=== PATIENT | female | born 1945 | race Caucasian/White ===

== ENCOUNTER 2018-08-18 12:32 | Inpatient (IN) | payer MEDICARE ==
[~2018-08-18] VITALS: Ht 157.5 cm; Wt 53.1 kg
[2018-08-18 13:00] VITALS: BP 133/69
--- NOTE | 2018-08-18 13:11 | NUR ---
PT LIVES AT HOME ALONE AND WHEN SON CHECKED ON HER SHE WAS VERY CONFUSED AND HAD NOT EATEN. HE ALSO STATED THAT SHE HAS NOT BEEN TAKING HER MEDICATIONS CORRECTLY. SON TOOK THE PT TO [facility] WHO THEN CONTACTED US DUE TO THE PT'S INCREASED CONFUSION, ANXIETY AND HER TEARFUL BEHAVIOR. PT IS ANXIOUS UPON ADMIT. PT AND SON BOTH GAVE CONSENT FOR TREATMENT AND PT SIGNED HER CONSENTS. PT HAS HER TOP DENTURES BUT HER BOTTOM ONES ARE NOT WITH HER AT THIS TIME. PT DOES HAVE HER GLASSES. PT IS A FULL CODE AND HER CODE WORD IS "NITRO 7".
[2018-08-18 14:24] LABS: BASOPHILS 0.4 % (0-2); EOSINOPHILS 0.7 % (0-7); HEMATOCRIT 41.3 % (36.0-48.0); HEMOGLOBIN 13.7 g/dL (12-16); IMMATURE GRANULOCYTES 0.2 % (0-5); LYMPHOCYTES 19.3 % (15-50); MCH 32.8 pg (26.0-34.0); MCHC 33.2 g/dL (31.0-37.0); MCV 98.8 fL (80.0-100.0); MEAN PLATELET VOLUME 10.2 fL (7.4-10.4); MONOCYTES 5.7 % (2-11); NEUTROPHILS 73.7 % (40-80); PLATELET COUNT 247 10x3/uL (130-400); RBC 4.18 10x6/uL (4.00-5.40); RDW 15.6 % (11.5-14.5); WBC 9.4 10x3/uL (4.8-10.8)
[2018-08-18 14:52] LABS: ALBUMIN 3.6 g/dL (3.4-5.0); ALKALINE PHOSPHATASE 104 U/L (46-116); ALT (SGPT) 22 U/L (10-68); BILIRUBIN - TOTAL 0.26 mg/dL (0.2-1.3); CALC OSMOLALITY 273 mosm/kg (275-300); CALCIUM 8.7 mg/dL (8.5-10.1); CARBON DIOXIDE 27.9 mmol/L (21.0-32.0); CHLORIDE - SERUM 100 mmol/L (98-107); CHOL - HDL RATIO 3.6 ratio (2.3-4.1); CHOLESTEROL, TOTAL 175 mg/dL (0-200); CREATININE - SERUM 0.7 mg/dL (0.6-1.3); GLUCOSE 115 mg/dL (74-106); HDL CHOLESTEROL 49 mg/dL (32-96); LDL CHOLESTEROL 65 mg/dL (0-100); LDL-HDL RATIO 1.3 ratio (1.5-3.5); POTASSIUM - SERUM 3.9 mmol/L (3.5-5.1); PROTEIN - SERUM 6.8 g/dL (6.4-8.2); SODIUM 137 mmol/L (136-145); TRIGLYCERIDE 309 mg/dL (30-200); UREA NITROGEN 9 mg/dL (7-18); eGFR NON AFRICAN AMERICAN 87 mL/min (90-120)
[2018-08-18 15:19] LABS: APPEARANCE CLEAR (CLEAR); BILIRUBIN NEGATIVE (NEGATIVE); COLOR YELLOW (YELLOW); EPITHELIAL CELLS 0-5 /hpf (0-5); GLUCOSE NEGATIVE (NEGATIVE); KETONE NEGATIVE (NEGATIVE); NITRITE NEGATIVE (NEGATIVE); PROTEIN NEGATIVE (NEGATIVE); RED CELLS - URINE 0-5 /hpf (0-5); SPECIFIC GRAVITY 1.015 (1.005-1.020); UROBILINOGEN NORMAL (NORMAL); WHITE CELLS - URINE 0-5 /hpf (0-5)
[2018-08-18] MEDS ORDERED: PROVENTIL/2.5 MG/3 M INH (15:33)
[2018-08-18] MEDS ORDERED: ASPIRIN81 MG PO (15:34)
[2018-08-18] MEDS ORDERED: ELAVIL25 MG PO (15:34)
[2018-08-18] MEDS ORDERED: ZITHROMAX500 MG PO (15:35)
[2018-08-18] MEDS ORDERED: LIPITOR20 MG PO (15:35)
[2018-08-18] MEDS ORDERED: BACLOFEN10 MG PO (15:36)
[2018-08-18] MEDS ORDERED: DIPROLENE 0.05%50 GM TOPICAL (15:37)
[2018-08-18] MEDS ORDERED: CEFUROXIME250 MG PO (15:40)
[2018-08-18] MEDS ORDERED: OMNICEF300 MG (15:40)
[2018-08-18] MEDS ORDERED: KLONOPIN1 MG PO (15:43)
[2018-08-18] MEDS ORDERED: BENTYL10 MG PO (15:44)
[2018-08-18] MEDS ORDERED: ARICEPT23 MG PO (15:45)
[2018-08-18] MEDS ORDERED: PROZAC20 MG PO (15:46)
[2018-08-18] MEDS ORDERED: FERROUS SULFAT325 MG PO (15:46)
[2018-08-18] MEDS ORDERED: LASIX40 MG PO (15:47)
[2018-08-18] MEDS ORDERED: FLUTICASONE PRO16 GM NASAL (15:47)
[2018-08-18] MEDS ORDERED: GABAPENTIN100 MG PO (15:48)
[2018-08-18] MEDS ORDERED: SYNTHROID100 MCG PO (15:50)
[2018-08-18] MEDS ORDERED: HYDROXYZINE HCL10 MG PO (15:50)
[2018-08-18] MEDS ORDERED: LIDOCAINE50 GM TOPICAL (15:51)
[2018-08-18] MEDS ORDERED: LYRICA50 MG PO (15:51)
[2018-08-18] MEDS ORDERED: MOBIC7.5 MG PO (15:52)
[2018-08-18] MEDS ORDERED: NAMENDA5 MG PO (15:52)
[2018-08-18] MEDS ORDERED: MELATONIN5 MG PO (15:52)
[2018-08-18] MEDS ORDERED: PROTONIX40 MG PO (15:53)
[2018-08-18] MEDS ORDERED: ZOFRAN4 MG PO (15:53)
[2018-08-18] MEDS ORDERED: K-DUR20 MEQ PO (15:54)
[2018-08-18] MEDS ORDERED: MIRALAX17 GM PO (15:54)
[2018-08-18] MEDS ORDERED: SEROQUEL50 MG PO (15:55)
[2018-08-18] MEDS ORDERED: PREDNISONE20 MG (15:55)
[2018-08-18] MEDS ORDERED: PRAVACHOL20 MG PO (15:55)
[2018-08-18] MEDS ORDERED: REQUIP1 MG PO (15:56)
[2018-08-18] MEDS ORDERED: TRAZODONE HCL150 MG (15:57)
[2018-08-18] MEDS ORDERED: KENALOG 0.1% OI80 GM TOPICAL (15:58)
--- NOTE | 2018-08-19 04:20 | NUR ---
B) Patient is alert and oriented to person and place and time, restless and attention seeking at times, wanders the hallways and frequent visits to nurses station I) Administered scheduled medications as ordered, PRN Lanicaine cream for arm pain 8 of 10 at 21:00, R) Mediation compliant, resting in bed asleep P) Continue plan of care.
[2018-08-19 07:31] LABS: RAPID PLASMA REAGIN Non Reactive (Non Reactive); VITAMIN D 25 HYDROXY 32.9 ng/mL (30.0-100.0)
[2018-08-19 09:17] LABS: FOLATE (FOLIC ACID) - SERUM 9.6 ng/mL (>3.0)
[2018-08-19 13:38] VITALS: Ht 157.5 cm; Wt 53.1 kg
--- NOTE | 2018-08-19 15:14 | NUR ---
ORIENTED X 3. COMPLIANT WITH STAFF AND MEDS.INTRUSIVE AT TIMES.CAN BE QUITE NEEDY AT TIMES.GAIT UNSTEADY,AMBULATES WITH A WALKER.WILL CONTINUE WITH PLAN OF CARE,MONITOR FOR CHANGES AND SAFETY.
[2018-08-19 15:43] VITALS: BP 116/71
[2018-08-19 19:58] VITALS: BP 131/62
--- NOTE | 2018-08-20 03:57 | NUR ---
B) Patient is alert and oriented to person and place, calm and cooperative, needy at times, I) Administered scheduled medications as ordered, redirected as needed, R) Mediation compliant, resting quietly in her room, wanders at times P) Continue plan of care.
[2018-08-20 07:04] VITALS: BP 118/80
--- NOTE | 2018-08-20 10:17 | NUR ---
PT IS CALM, COOPERATIVE TODAY. UPDATED SON ON PT'S BEHAVIOR AND [place] PLAN. VERBALIZED UNDERSTANDING. PT USES WALKER TO AMBULATE. FALL PRECAUTIONS MAINTAINED. MEDICATIONS GIVEN ORDERED. WILL CONTINUE TO MONITOR AND CONTINUE WITH PLAN OF CARE.
--- NOTE | 2018-08-20 12:41 | PN ---
PATIENT:JOSIAH HESS MEDICAL RECORD: [id number] LOCATION:[facility] ADMISSION DATE: 08/18/18 PROGRESS NOTE DATE OF SERVICE: 08/19/2018 SUBJECTIVE: The patient's case was discussed with staff. She has no new complaint. The patient looks significantly less agitated today than she did yesterday. I am not entirely convinced that she takes her medications correctly; or more accurately, I should say I doubt that she has taken any of her medicines correctly for a long time. She is clearly in an environment now where that can happen. I know that she is demented. I am sure that underlying this, she is demented, but I cannot help but believe that the current situation that we are observing is largely related to polypharmacy that is only inconsistently and sporadically followed. One example was she had a prescription for an antibiotic that, if taken as directed, should have been finished weeks ago. Obviously, the antibiotic is not causing any of these cognitive changes, but she had literally 50 different pill bottles, some overlapping, none of them had the correct number of pills missing from the date or, I should say, at least the ones that were checked did not and several of them were checked. Some of the medicines were also duplicates. Given her cognitive state, I do not see how she could begin to sort out what to take and when to take. I think that she may have little bit of delirium that is associated with polypharmacy. Again, she may clear some, but I feel almost certain that she is going to require 45-zwcd-d-day supervision. Given what we know now, it is looking as though the least restrictive environment is going to be a detention, but I am getting ahead of myself and will just wait and see how things unfold over the next week. TRANSINT:[id number] Voice Confirmation ID: [id number] DOCUMENT ID: [id number] CROW HUYNH MD at 1241 CC: [id number] DICTATION DATE: 08/19/18 1619 COMPUTER VIDEO GAME DESIGNER: 08/19/18 1903 ADM IN [facility] [address] [place] [address]
--- NOTE | 2018-08-20 12:41 | PSY ---
PATIENT NAME:JOSIAH HESS MEDICAL RECORD: [id number] : 45 LOCATION:[facility] ADMISSION DATE: 08/18/18 ACCOUNT: [id number] PSYCHIATRIC EVALUATION DATE OF EVALUATION: 08/18/18 IDENTIFYING DATA: The patient is 73 years old and she is admitted to the hospital on a voluntary basis. CHIEF COMPLAINT: Agitation. HISTORY OF PRESENT ILLNESS: The patient is a very nice, but confused woman who apparently is living alone here in [place]. She is a very poor historian everything that is going to be contained within this history unless otherwise noted needs to be substantiated through collateral sources. The patient apparently is living alone. Her son came to check on her. He apparently does not check on her every day and she has a known history of dementia as well as bipolar disorder and apparently she was agitated, not doing well, and he called and asked us to evaluate her. The patient thinks she is in [place], [place] and living with her . She is quite confused, emotionally distraught and agitated and unable to provide much in the way of useful history or information. She has been quite anxious and has a number of depressive symptoms that she endorses. She has apparently not been eating properly or taking care of herself. She has numerous medication bottles from various physicians and it is pretty clear she has not been taking her medicines correctly. PAST MEDICAL HISTORY: Significant for hypothyroidism, COPD, chronic back, and neck pain. PAST PSYCHIATRIC HISTORY: Significant for dementia, depression, anxiety and bipolar disorder. I doubt she has all of those symptoms, some of them are diagnoses and others can be just symptoms associated with the same disorder, but it is clear she has had a psychiatric history in addition to the dementia, although I do not have details on this. I asked her if she has ever seen a psychiatrist. She answers affirmatively but then when asked who, when, or where she is completely lost and disorganized. ALLERGIES: REGLAN. CURRENT MEDICATIONS: Include Proventil, Elavil, aspirin, Lipitor, Augmentin, Klonopin, Aricept, Prozac, Neurontin, Synthroid, melatonin, Mobic, Pravachol, Seroquel, Desyrel, and Kenalog ointment. She apparently is also either recently been taking or recently discontinued Requip, potassium, Protonix, Zofran, Lyrica, Atarax, Lasix, Feosol, Bentyl, Omnicef, Zithromax, and baclofen. FAMILY HISTORY: Significant for cardiovascular disease and cancer. She says there is no family history of psychiatric illness. SOCIAL HISTORY: The patient says she is and has adult children, 3 of them. 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 She denies a history of drug or alcohol abuse. MENTAL STATUS EXAMINATION: The patient is awake, alert and oriented to person only. Her mood is anxious. Her affect is constricted. Thought processes are disorganized. Memory, concentration, and abstraction abilities are moderately impaired and she denies any active intent to harm herself or others as well as any overt psychotic symptoms. ASSETS: Supportive family members. LIABILITIES: Limited insight. DIAGNOSTIC IMPRESSION: AXIS I: Senile dementia of the Alzheimer's type with behavioral disturbances. Bipolar disorder by history. AXIS II: None. 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 AXIS IV: Moderate. AXIS V: Global assessment of functioning is 30. PLAN: At this time, the patient is admitted to the hospital for a comprehensive medical, psychological, and social evaluation. She will be treated with both mood stabilizing and memory enhancing medications. Her long-term prognosis is guarded. TRANSINT:[id number] Voice Confirmation ID: [id number] DOCUMENT ID: [id number] CROW HUYNH MD at 1241 CC: [id number] DICTATION DATE: 08/18/18 184 DOUBLE NEEDLE OPERATOR: 08/18/182020 ADM IN [facility] [address] [place] [address]
[2018-08-20 20:00] VITALS: BP 102/53
--- NOTE | 2018-08-20 21:40 | NUR ---
PATIENT IS CONFUSED BUT COOPERATIVE, COMPLIANT WITH MEDS, NO ADVERSE REACTION NOTED. WILL FOLLOW POC
--- NOTE | 2018-08-21 07:30 | NUR ---
REC'D PT IN HALLWAY WITH PEERS SOCIALIZING. AWAKE AND ALERT TO SELF. PT IS VERY NEEDY AND ATTENTION SEEKING AT TIMES. CALM AND COOPERATIVE WITH ASSESSMENT. REDIRECT AND REORIENT NEEDED. PRESCRIBED MEDS PROVIDED. MED COMPLIANT. FALL PRECAUTIONS IN PLACE. WILL CONTINUE TO MONITOR Q 15 MINUTES FOR SAFETY. WILL CPOC.
[2018-08-21 08:26] VITALS: BP 135/67
--- NOTE | 2018-08-21 12:51 | PN ---
PATIENT:JOSIAH HESS MEDICAL RECORD: [id number] LOCATION:[facility] ADMISSION DATE: 08/18/18 PROGRESS NOTE DATE OF SERVICE: 08/20/2018 SUBJECTIVE: The patient's case was discussed with staff. She has no new complaint. OBJECTIVE: The patient denies intent to harm herself or others. She is significantly and seriously impaired cognitively, but is much calmer than she had previously been. ASSESSMENT: No change in diagnoses. PLAN: Current medicines have been reviewed. I am going to maintain them. She will be monitored for clinical changes. TRANSINT:[id number] Voice Confirmation ID: [id number] DOCUMENT ID: [id number] CROW HUYNH MD at 1251 CC: [id number] DICTATION DATE: 08/20/18 1251 DRIER AND EVAPORATOR OPERATOR: 08/20/18 1451 ADM IN [place] [facility] [id number] [place] [address]
[2018-08-21 20:00] VITALS: BP 161/68
--- NOTE | 2018-08-21 21:45 | NUR ---
PATIENT IS QUIET, COOPERATIVE, CONFUSED, COMPLIANT WITH MEDS, NO ADVERSE REACTION NOTED. WILL FOLLOW POC
--- NOTE | 2018-08-22 07:30 | NUR ---
REC'D PT IN HALLWAY WITH PEERS. ALERT TO SELF. CALM AND COOPERATIVE WITH ASSESSMENT. NO BEHAVIORS NOTED. PRESCRIBED MEDS PROVIDED. MED COMPLIANT. REDIRECT AND REORIENT NEEDED. FALL PRECAUTIONS IN PLACE. WILL CONTINUE TO MONITOR Q 15 MINUTES FOR SAFETY. WILL CONTINUE PLAN OF CARE.
--- NOTE | 2018-08-22 15:53 | PN ---
PATIENT:JOSIAH HESS MEDICAL RECORD: [id number] LOCATION:[facility] ADMISSION DATE: 08/18/18 PROGRESS NOTE DATE OF SERVICE: 08/21/2018 SUBJECTIVE: The patient's case was discussed with staff. She has no new complaint. OBJECTIVE: The patient is in good behavioral control with limited insight about her condition. She has not been significantly agitated today. ASSESSMENT: No change in diagnoses. PLAN: Brief supportive and educational interventions were made. Long-term prognosis is guarded. TRANSINT:[id number] Voice Confirmation ID: [id number] DOCUMENT ID: [id number] CROW HUYNH MD at 1553 CC: [id number] DICTATION DATE: 08/21/18 1300 CAMP PROGRAM DIRECTOR: 08/21/18 1802 ADM IN [place] [address] [place] [address]
[2018-08-22 20:27] VITALS: BP 109/57
--- NOTE | 2018-08-23 02:51 | NUR ---
B) Patient is alert and oriented to person and being in a hospital, calm and cooperative this shift, I) Administered scheduled mediccations as ordered, monitored for safety R) Mediation compliant, sleeping quiety now, P) [place] plan of care.
--- NOTE | 2018-08-23 07:30 | NUR ---
REC'D PT IN HALLWAY SOCIALIZING WITH PEERS. PT CALM AND COOPERATIVE WITH ASSESSMENT. PRESCRIBED MEDS PROVIDED.MED COMPLIANT. REDIRECT AND REORIENT NEEDED. FALL PRECAUTIONS IN PLACE. WILL CONTINUE TO MONITOR Q 15 MINUTES FOR SAFETY. WILL CPOC.
[2018-08-23 08:30] VITALS: BP 123/69
--- NOTE | 2018-08-23 12:58 | NUR ---
Nutrition Follow Up: Chart reviewed Diet: Regular PO Intake: 51% meal avg BM: 08/22/18 Labs and meds reviewed Rec continue current diet. Will honor food preferences and provide supplements prn. RD following.
--- NOTE | 2018-08-23 15:32 | PN ---
PATIENT:JOSIAH HESS MEDICAL RECORD: [id number] LOCATION:[facility] ADMISSION DATE: 08/18/18 PROGRESS NOTE DATE OF SERVICE: 08/22/2018 SUBJECTIVE: The patient's case was discussed with staff. She has no new complaint. She did not eat very well yesterday, but she slept reasonably well. She is still significantly and seriously confused. It does appear that she is going to require some level of ongoing supervision. She has almost no insight about her situation. ASSESSMENT: No change in diagnoses. PLAN: Going to increase the patient's Namenda to 5 mg twice daily. I am also going to reduce the patient's Klonopin and would like to taper that off before she is discharged. TRANSINT:[id number] Voice Confirmation ID: [id number] DOCUMENT ID: [id number] CROW HUYNH MD at 1532 CC: [id number] DICTATION DATE: 08/22/18 171 MACHINE OPERATOR HELPER: 08/22/18 1836 ADM IN [place] [id number] [place] [address]
[2018-08-23 21:16] VITALS: BP 140/80
--- NOTE | 2018-08-24 03:30 | NUR ---
B) PATIENT IS ALERT AND ORIENTED TOO SELF AND HOSPITAL. RESTLESS AND HAVING TROUBLE GOING TO SLEEP TONIGHT. COOPERATIVE WITH STAFF. I) ADMINISTERE SCHEDULED MEDICATIONS, MONITOR FOR SAFETY. R) MEDICATION COMPLIANT, SLEEPING QUIETLY NOW. P) CONTINUE PLAN OF CARE.
--- NOTE | 2018-08-24 07:30 | NUR ---
REC'D PT IN HALLWAY. PT IS ANXIOUS TO DISCHARGE HOME TODAY. CALM AND COOPERATIVE WITH ASSESSMENT. ALERT WITH CONFUSION NOTED. REDIRECT AND REORIENT NEEDED. PRESCRIBED MEDS PROVIDED. MED COMPLIANT. FALL PRECAUTIONS IN PLACE. WILL CONTINUE TO MONITOR Q 15 MINUTES FOR SAFETY. WILL CPOC.
[2018-08-24 08:08] VITALS: BP 123/71
[2018-08-24] MEDS ORDERED: FEXOFENADINE HC60 MG PO (08:38)
[2018-08-24] MEDS ORDERED: ZYVOX600 MG PO (08:39)
[2018-08-24] MEDS ORDERED: NAMENDA5 MG PO (08:41)
[2018-08-24] MEDS ORDERED: FLORAJEN3 CAPS460 MG PO (08:41)
[2018-08-24] MEDS ORDERED: TOPICORT 0.25 %15 G1 TOPICAL (08:42)
[2018-08-24] MEDS ORDERED: MELATONIN 3 MG1 TAB PO (08:43)
--- NOTE | 2018-08-24 11:16 | NUR ---
PT DISCHARGED HOME WITH SON. MEDICATIONS CALLED INTO [facility] SPOKE WITH SEBASTIAN ALL MEDICATIONS READ BACK AND VERIFIED. PT DENIES ANY PAIN OR DISCOMFORT. NO S/SX OF DISTRESS NOTED. ALL DISCHARGE PAPERWORK FAXED TO DR. BECKER # [phone] AND COPY SENT WITH PT. PT AND SON AWARE DISCHARGING HOME IS NOT RECOMMENDED . RECOMMENDED 24/ SUPERVISION. APS WILL BE CONTACTED TO FOLLOW UP PER TORRES.
--- NOTE | 2018-08-24 15:23 | PN ---
PATIENT:JOSIAH HESS MEDICAL RECORD: [id number] LOCATION:[facility] ADMISSION DATE: 08/18/18 PROGRESS NOTE DATE OF SERVICE: 08/23/2018 SUBJECTIVE: The patient's case was discussed with staff. She has no new complaint. OBJECTIVE: The patient denies that she would seek to harm herself or others. She is generally tolerating her medications well. ASSESSMENT: No change in diagnoses. PLAN: The patient is calmer. I am going to reduce her Klonopin to 1/4 of a mg twice daily. TRANSINT:[id number] Voice Confirmation ID: [id number] DOCUMENT ID: [id number] CROW HUYNH MD at 1523 CC: [id number] DICTATION DATE: 08/23/18 162 RN ACUTE CARE: 08/23/182136 DIS IN 08/24/18 [place] [address] [place] [address]
--- NOTE | 2018-08-30 15:16 | DS ---
PATIENT:JOSIAH HESS :45 MEDICAL RECORD: [id number] DISCHARGE SUMMARY ADMISSION DATE: 08/18/18 DISCHARGE DATE: 08/24/18 IDENTIFYING DATA: The patient is 73 years old and she was admitted to the hospital on a voluntary basis because of agitation. The patient is living here in [place] alone. She is a poor historian. She is clearly confused. She apparently had her son come and check on her and apparently he does not check on her every day. She has a known history of dementia and bipolar disorder. She was found to be very confused and emotionally distraught. She did not know where she was or what town she was in, had not been taking her medications, and was very agitated with her son. She was brought to the Emergency Room and evaluated with no obvious or significant medical or neurologic findings being present. She had literally almost 50 bottles of medications only a few of which have abuse potential and most of them were either overlapping and from different doctors and none of them seem to have had the right number of pills in them or at least the spot checks on the medicines indicated that she had not been taking them correctly based on the directions and the date. HOSPITAL COURSE: The patient was admitted to the hospital and fully evaluated from both a medical, psychological, and social standpoint. She was found to have an advanced dementia along with bipolar disorder. She was started on mood stabilizing and memory enhancing medications and organized very quickly indicating that the problem was likely related to medication noncompliance or incorrect compliance or partial compliance along with a lack of adequate supervision. The patient was recommended for alf placement and was referred to alf placement, which she refused. She does have a home about 3 hours from here in [facility] and a family member there who is going to allow her to stay with her and/or check on her. This is not a good placement and Adult Protective Services has been notified so that they can become involved and check on her. DISCHARGE DIAGNOSES: AXIS I: Senile dementia of the Alzheimer's type with behavioral disturbances. Bipolar disorder. AXIS II: None. AXIS III: Chronic obstructive pulmonary disease, lung mass of uncertain etiology, chronic back and neck pain, hypothyroidism, vitamin B12 deficiency, peripheral neuropathy, chronic constipation, hypertriglyceridemia, and restless legs syndrome. AXIS IV: Moderate. AXIS V: Global assessment of functioning is 40. PLAN: The patient organized significantly, but was still impaired cognitively. Her mood symptoms had dramatically improved, and at the time of discharge, she was not acutely dangerous to herself or others. She was refusing a more supervised structured environment. She has been referred to outpatient followup in [facility] to evaluate both her lung mass, which is potentially something quite ominous and her family and she know this and have agreed to make sure she keeps these followup appointments. In addition to that, she has ongoing chronic medical problems that need to be monitored. It is my hope that she can remain in an environment with limited supervision and hopefully Adult Protective Services will watch her carefully as she is now going to be 150 miles away from this facility. DISCHARGE SUMMARY REPORT [id number] JOSIAH HESS TRANSINT:[id number] Voice Confirmation ID: [id number] DOCUMENT ID: [id number] CROW HUYNH MD at 1516 CC: [id number] DICTATION DATE: 08/25/18 1527 PHYSICAL TRAINER: 08/26/18 1224 DIS IN 08/24/18 [place] [address] [place] [address]
== END 2018-08-24 11:30 | disposition home or self-care (01) | DRG 57 ==
LOC: D.PSYCH 12:32
PROVIDERS: ADMIT Psychiatry & Neurology Psychiatry
DX: G30.1 Alzheimer's disease with late onset (principal); F02.81 Dementia in other diseases classified elsewhere, unspecified severity, with behavioral disturbance; J44.9 Chronic obstructive pulmonary disease, unspecified; R91.8 Other nonspecific abnormal finding of lung field; E03.9 Hypothyroidism, unspecified; E53.8 Deficiency of other specified B group vitamins; K59.09 Other constipation; E78.1 Pure hyperglyceridemia; G25.81 Restless legs syndrome; G47.00 Insomnia, unspecified; J30.9 Allergic rhinitis, unspecified